=== PATIENT | female | born 1975 | race Hispanic/Latino ===

== ENCOUNTER → 2018-02-12 17:57 | Outpatient (CLI) | payer OTHER, SELFPAY | PROVIDERS: PCP Physician Assistant; Visit Provider Physician Assistant | DX: R52 Pain, unspecified (principal) | CPT/HCPCS: 87077; 87086; 87186 ==

== ENCOUNTER 2023-09-18 10:11 | Day surgery (SDC) | payer OTHER, SELFPAY ==
[2023-09-11 09:43] VITALS: BMI 45.3
--- NOTE | 2023-09-18 | PATH_ITS ---
[facility] Accession Number: [id number] No. of containers..03 Tissue . 01 Material submitted: . PART A: cervix - ANTERIOR LIP CERVIX PART B: cervix - POSTERIOR LIP CERVIX PART C: endocervix - ENDOCERVICAL . 01 Diagnosis: A. ANTERIOR CERVIX, LEEP: Cervical transformation zone with mild squamous atypia, consistent with low-grade squamous intraepithelial lesion (MARIE-1). No high-grade squamous intraepithelial lesion identified. Negative for malignancy. Focal mild squamous atypia present in an area of cautery artifact at the ectocervical margin, indefinite for MARIE-1. . B. POSTERIOR CERVIX, LEEP: Cervical transformation zone with marked chronic inflammation. Negative for squamous intrapithelial lesion or malignancy. No evidence of endometrial stroma on a CD10 immunohistochemical stain. . C. ENDOCERVIX, LEEP: Endocervical mucosa with no diagnostic abnormality. Negative for squamous intraepithelial lesion or malignancy. [facility] 09/26/2023 1641 Local . 01 Comment: As part of routine quality assurance supervisor final, Dr. Mathew has reviewed arborist representative slides from this case and agrees with the interpretation above. . 01 Electronically signed: . Juanito Addison MD, PhD, Pathologist NPI- [id number] . 01 Gross description: . A. Received in formalin, labeled with the patient's name, , and anterior lip of cervix, consists of three unoriented fragments of red-zuniga, heavily cauterized cervical tissue aggregating to 2.0 x 1.5 x 0.7 cm. The ectocervix is pink-zuniga, smooth, and unremarkable. The stromal margins are inked blue, black, and green. The tissue is serially sectioned and entirely submitted in cassettes A1-A3. B. Received in formalin, labeled with the patient's name, , and posterior lip of cervix, consists of two unoriented fragments of red-zuniga, heavily cauterized cervical tissue aggregating to 2.5 x 2.5 x 0.7 cm. The minimal ectocervix is pink, smooth and unremarkable. The stromal margins are inked blue and black. Each fragment is serially sectioned and entirely submitted in cassettes B1-B4. C. Received in formalin, labeled with the patient's name, , and endocervical, consists of a single unoriented fragment of cervical tissue measuring 1.5 x 1.3 x 0.6 cm. An os is not identified. The stromal margin is inked blue. The tissue is serially sectioned and entirely submitted in cassettes C1-C2. ([id number]) /MRV 09/19/2023 [facility]6 Local . 01 Microscopic: . B1) Sections are of cervical transformation zone with marked chronic inflammation which surrounds endocervical glands. To exclude the possibility of endometriosis, a CD10 immunohistochemical stain is performed, which is negative for intense immunoreactivity in the focus of interest, strongly arguing against a diagnosis of endometriosis. A control stain shows appropriate reactivity. . * This test was developed and its performance characteristics determined by [employer]. It has not been cleared or approved by the U.[place]. Food and Drug Administration. The FDA has determined that such clearance or approval is not necessary. This test is used for clinical purposes. It should not be regarded as investigational or for research. . 01 Pathologist provided ICD-10: N87.0 . 01 CPT . 748283, 919560, 768578, K24489 Specimen Comment: A courtesy copy of this report has been sent to [phone] Performed at: 01 [facility] [address] [place] [address] [address], [place], [place] [id number] MD Zia Chavarria MD Phone: [phone]
[2023-09-18] MEDS: LACTATED RINGERS 1,000 ML 84 ML IV (10:27)
[2023-09-18] MEDS: SCOPOLAMINE 1 PATCH TOP (10:41)
[2023-09-18 10:47] VITALS: BP 148/88; PULSE 73; RESP 16; TEMP 36.9; O2SAT 97; BMI 45.3
--- NOTE | 2023-09-18 11:18 | P.HPOB_ITS ---
History of Present Illness History of Present Illness Narrative: Joanne Suarez is a 48 year old female with cervical dysplasia. She presents for a LEEP cone biopsy of the cervix with an endocervical component due to MARIE 2 extending into the endocervical canal. [facility] Medical History (Updated 01/28/23 @ 16:40 by Ellyn Bentley RN) History of obesity History of chronic pain Loud snoring Elevated blood pressure reading without diagnosis of hypertension History of osteoarthritis History of asthma Social History household members: spouse Smoking Status: Never smoker alcohol intake: current Meds Home Medications and Allergies Home Medications Medication Instructions Recorded Confirmed Type albuterol sulfate 90 mcg/actuation 1 inh inhalation QID PRN Shortness 01/28/23 09/18/23 History aerosol inhaler Of Breath Allergies Allergy/AdvReac Type Severity Reaction Status Date / Time Penicillins [PENICILLINS] Allergy Unknown unk poss. Verified 09/18/23 10:42 breathing problems Sulfa (Sulfonamide Allergy Unknown body aches Verified 09/18/23 10:42 Antibiotics) , rash [SULFA (SULFONAMIDE ANTIBIOTICS)] Exam Vital Signs (past 8 hours): - 09/18/23 10:47 Temperature 98.5 F Pulse Rate 73 Respiratory Rate 16 Blood Pressure 148/88 H Pulse Oximetry 97 Oxygen Delivery Method Room Air Oxygen Delivery Method Room Air Narrative Exam Narrative: HEENT: No thyromegaly, no anterior cervical or supraclavicular lymphadenopathy. Lungs:Clear to auscultation bilaterally, no wheezes. Cardiovascular: Regular rate and rhythm, no murmurs, rubs, or gallops. Abdomen: No scars. No hepatosplenomegaly. No masses palpable. External genitalia: Normal Vagina: Normal Cervix: Status post biopsies Bimanual exam: 7 Week size uterus. Mobile. Extremities: No edema Assessment & Plan Assessment & Plan narrative: Assessment: 48-year-old with severe dysplasia of the cervix including the endocervical canal Plan: LEEP cone biopsy of the cervix with endocervical component The risks, benefits, and alternatives to the procedure were explained to the patient. The risks including bleeding and infection. She understands these risks and agrees to proceed. A full par Q was held and consent form was signed. Time Spent With Patient Time with patient: less than 30 minutes
--- NOTE | 2023-09-18 11:20 | PM.PREOP ---
Pre-operative Note Interval Note History & Physical reviewed/Exam performed by Physician: Yes Changes to H&P: No H&P completed within 30 days and has changed as indicated here:: 09/18/23
[2023-09-18] MEDS: ACETAMINOPHEN IV 1,000 MG/100 ML VIAL 400 MG IV (11:30)
[2023-09-18] MEDS: TRANEXAMIC ACID 1,000 MG in SODIUM CHLORIDE 0.9% 100 ML 200 MG IV (12:22)
[2023-09-18 12:40] VITALS: BP 170/80; PULSE 67; RESP 16; O2SAT 100
[2023-09-18 12:45] VITALS: BP 162/93; PULSE 70; RESP 16; TEMP 36.1; O2SAT 100
[2023-09-18 12:46] VITALS: BP 162/76; PULSE 69; RESP 16; TEMP 36.8; O2SAT 98
[2023-09-18] MEDS: ONDANSETRON 4 MG/2 ML INJ IV (12:54)
[2023-09-18] MEDS: OXYCODONE IR 5 MG TABLET PO (12:54)
[2023-09-18 12:59] VITALS: BP 154/85; PULSE 65; RESP 16; TEMP 36.8; O2SAT 98
[2023-09-18] MEDS: IBUPROFEN 600 MG TABLET PO (13:04)
--- NOTE | 2023-09-18 13:07 | PM.GYNOP.1 ---
Operative Date/Time/Diagnoses Date of procedure: 09/18/23 Time of procedure: 13:07 Pre-op diagnosis: Severe dysplasia of the cervix including the endocervix Post-op diagnosis: same Procedure & Clinicians Procedure: Procedures Operation Date: 09/18/23 11:30 Actual Procedure Side Surgeon p ELLIE Cone Bx Laurie Diaz MD Indications: Moderate cervical dysplasia Surgeon: Laurie Diaz Anesthesia Type: General (LMA) Operative Notes Findings: Lugol's light surrounding the cervical os Closure Type: not applicable Specimen(s): other (Anterior lip of the cervix, posterior lip of the cervix, endocervical component) Applied: other (Gelfoam) Estimated blood loss (mL): 50 Procedure in detail: After informed consent was obtained, the patient was taken to the operating room where she was placed in the dorsal supine position. After adequate LMA general anesthesia was achieved, she was placed in the dorsal lithotomy position, and prepped and draped in the usual sterile fashion. A time-out was performed. A plastic coated bivalve speculum was placed into the vagina. The cervix was coated with Lugol solution. There were Lugol's light areas around the cervical os. A plastic coated single-tooth tenaculum was placed on the anterior lip of the cervix. Using the 20 mm loop, the anterior and posterior lips of the cervix were excised. These were tagged with a short suture at 6:00 a.m., a long suture at 12:00 p.m.. Using the 15 mm loop and endocervical component was excised. This was untagged. The base of the cone including the endocervical canal were cauterized for hemostasis. There was still a small amount of oozing. A piece of Gelfoam was placed into the bed of the LEEP and a suture with 2 0 chromic was placed between the anterior and posterior lips and hemostasis was achieved. The single-tooth tenaculum was removed from the anterior lip of the cervix. The plastic coated bivalve speculum was removed from the vagina. Sponge, lap, and instrument counts were correct x2. The patient tolerated the procedure well, and was taken to PACU in stable condition. Complications: none Post-operative Condition: stable Disposition: PACU Plan for aftercare: Home after recovery
[2023-09-18 13:12] VITALS: BP 150/70; PULSE 77; RESP 16; TEMP 36.1; O2SAT 98
== END 2023-09-18 13:28 | disposition home or self-care (01) ==
PROVIDERS: PCP Physician Assistant; Referring Provider Obstetrics & Gynecology; Visit Provider Obstetrics & Gynecology
PROC: 0UBC7ZZ Excision of Cervix, Via Natural or Artificial Opening (ICD-10-PCS; CPT 57522; principal; 2023-09-18 11:30)
DX: N87.0 Mild cervical dysplasia (principal)
CPT/HCPCS: 57522; J0136; J1100; J1885; J2405; J2704; J3010